=== PATIENT | male | born 1990 | race Two or more races ===

== ENCOUNTER 2018-03-29 23:43 | Emergency (ER) | payer OTHER ==
[~2018-03-29] VITALS: Ht 172.7 cm; Wt 72.6 kg
[~2018-03-29 23:43] MED LIST: ULTRAM50 MG PO
[2018-03-30] MEDS ORDERED: VISTARIL50 MG PO (01:41)
== END 2018-03-30 01:46 ==
LOC: ER 23:43
DX: R00.2 Palpitations (principal); F41.9 Anxiety disorder, unspecified; T40.7X5A Adverse effect of cannabis (derivatives), initial encounter; Y92.89 Other specified places as the place of occurrence of the external cause

== ENCOUNTER 2019-05-20 18:44 | Emergency (ER) | payer OTHER ==
[~2019-05-20] VITALS: Ht 175.3 cm; Wt 63.5 kg
[~2019-05-20 18:44] MED LIST changes: +VISTARIL50 MG PO
== END 2019-05-20 21:19 | disposition home or self-care (01) ==
LOC: ER 18:44
DX: K08.89 Other specified disorders of teeth and supporting structures (principal)

== ENCOUNTER → 2021-06-30 | Emergency (ER) | payer OTHER ==
[~2021-06-30] VITALS: Ht 175.3 cm; Wt 62.6 kg
== END | disposition home or self-care (01) ==
LOC: ER 05:21
DX: U07.1 COVID-19 (principal); J12.89 Other viral pneumonia; R42 Dizziness and giddiness